=== PATIENT | female | born 1935 | race Caucasian/White ===

== ENCOUNTER 2017-09-29 17:13 | Inpatient (IN) | payer MEDICARE, MEDICAID, SELFPAY ==
--- NOTE | 2017-09-29 17:26 | DI.RAD.S_ITS ---
PROCEDURE: XR CHEST 1V INDICATIONS: fever possible sepsis TECHNIQUE: One view of the chest was acquired. COMPARISON: [facility], , CHEST FOR PICC PLACEMENT, 06/28/2014, 15:44. [facility], , CHEST 1 VIEW, 06/25/2014, 1:32. [facility], , CHEST 1 VIEW, 09/02/2013, 10:27. FINDINGS: Surgical changes and devices: The dual-chamber cardiac pacemaker device and leads appear normal. Lungs and pleura: No pleural effusions or pneumothorax. Lungs are chronically abnormal with an interstitial prominence pattern, but no definite pneumonia is found. Mild alveolar edema a superimposed, to the degree of mild or early ARDS could be present. Mediastinum: Mediastinal contours appear normal. Heart size is normal. Bones and chest wall: No suspicious bony lesions. Overlying soft tissues appear unremarkable. IMPRESSION: Chronic interstitial prominence with superimposed alveolar edema pattern there is mild. In the setting of possible sepsis early ARDS must be considered. Dictated by: Tone Dukes M.D. on 09/29/2017 at 17:40 Approved by: Tone Dukes M.D. on 09/29/2017 at 17:41
[2017-09-29 17:30] VITALS: BP 122/40; PULSE 88; RESP 22; TEMP 37.7; O2SAT 93; BMI 36.6
[2017-09-29 18:19] LABS: Basophils Percent Auto 0.2 % (0-2); Hematocrit 32.4 % (36-46); Hemoglobin 10.5 g/dL (12.0-16.0); INR 1.2 (0.9-1.3); Lymphocytes Percent Auto 2.2 % (25-40); Mean Corpuscular HGB Conc 32.4 % (30-36); Mean Corpuscular Hemoglobin 24.1 PG (26-34); Mean Corpuscular Volume 74.4 fL (80-100); Monocytes Percent Auto 3.5 % (3-14); Neutrophils Absolute Auto 8500 /uL (3000-5900); Neutrophils Percent Auto 94.1 % (50-75); Platelet Count 110 X10^3/uL (150-400); Prothrombin Time 12.7 SECONDS (10.1-12.7); Red Blood Cell Count 4.36 X10^6/uL (4.0-5.2); Red Cell Distribution Width 15.3 % (11.6-14.8)
[2017-09-29 18:22] LABS: Add Manual Diff / Slide Review SLIDE REVIEW; PTT Partial Thromboplastin Tim 28 SECONDS (26.4-36.2)
[2017-09-29 18:25] LABS: Appearance Urine UA CLOUDY; Bilirubin Urine UA NEGATIVE (NEGATIVE); Color Urine UA YELLOW; Glucose Urine UA NEGATIVE (Normal); Ketones Urine UA TRACE (NEGATIVE); Leukocyte Esterase Urine UA 1+ (NEGATIVE); Nitrite Urine UA POSITIVE (Negative); Occult Blood Urine UA 1+ (Negative); Protein Urine UA 1+ (Negative); Urobilinogen Urine UA 0.2 E.U./dL (0.2)
[2017-09-29 18:29] LABS: Alanine Aminotransferase 26 IU/L (9-52); Albumin 3.4 g/dL (3.5-5.0); Albumin Globulin Ratio 1.3 (1.0-2.8); Alkaline Phosphatase 69 U/L (38-126); Aspartate Aminotransferase 23 IU/L (14-36); BUN Creatinine Ratio 25.7 (6-22); Bilirubin Total 1.2 mg/dL (0.2-1.3); Blood Urea Nitrogen 18 mg/dL (7-17); Calcium 8.7 mg/dL (8.4-10.2); Carbon Dioxide 22 mmol/L (22-32); Chloride 106 mmol/L (98-107); Estimated Glomerular Filt Rate > 60.0 mL/min (>60); Globulin 2.7 g/dL (1.7-4.1); Glucose 165 mg/dL (80-110); HEMOLYSIS < 15 (0-50); Lipase 20 U/L (23-300); Potassium 2.9 mmol/L (3.4-5.1); Sodium 141 mmol/L (137-145); Total Protein 6.1 g/dL (6.3-8.2)
[2017-09-29 18:30] LABS: Lactate (Lactic Acid) 1.6 mmol/L (0.7-2.1)
[2017-09-29 18:33] VITALS: TEMP 38.2
[2017-09-29 18:33] LABS: Bacteria Urine Many (>30); Culture Indicated Urine Specimen Cultured; RBC Urine 1-5/HPF (0-5/HPF); Squamous Epithelial Cell Urine 0-1 /HPF; WBC Urine 10-30/HPF (0-5/HPF)
[2017-09-29 18:45] LABS: Procalcitonin 0.87 ng/mL (<0.5)
[2017-09-29 18:57] LABS: Microcytosis 1+; Ovalocytes 1+; Poikilocytosis 1+
[2017-09-29] MEDS: ASPIRIN 81 MG TAB 324 MG PO (19:20)
[2017-09-29] MEDS: SODIUM CHLORIDE 0.9% 1,000 ML 1000 ML IV (19:21)
--- NOTE | 2017-09-29 19:56 | ED.HA ---
HPI - Headache General Chief Complaint: Headache Stated Complaint: Headache w/ nausea Time Seen by Provider: 09/29/17 17:24 History of Present Illness HPI Narrative: HPI 82-year-old female presents afebrile for evaluation of poorly articulated malaise of possibly 2-3 days duration. Patient predominately endorses a sensation ear fearfulness, congestion, sore throat, but also notes cough, dysuria, urinary frequency, and left leg pain with warmth. Patient appears to have had decreased PO intake. M/S/F/SocHx notable for: chronic cellulitis, thee replacement, pacemaker, ; remainder reviewed with patient and in chart. ROS: unable to obtain accurate review systems from the patient due to mentation. Exam Gen: pleasant, unwell but not in extremis, resting mild discomfort. HEENT: NC, AT, PEERL, EOMI, neck supple, no goiter appreciated. Bilateral TMs obscured by cerumen. Bilateral external auditory canals visually normal. Resp: Clear to auscultation bilaterally, normal work of breathing, no accessory muscle usage. Card: Regular rate and rhythm with no murmurs, rubs, or gallops, extremities warm and well perfused. GI: Non-tender to palpation throughout all quadrants, no focal tenderness at McBurney's point, negative Yousif's sign, non-distended, no rebound or guarding. : No suprapubic tenderness to palpation. No CVA tenderness to percussion bilaterally. MSK: left lower extremity with mild swelling, erythema from the hip through the mid calf, mild tenderness, no fluctuance or crepitus, otherwise no visible deformities, strength and tone without visually appreciable deficit. No spinal tenderness palpation. Skin: Normal color, no petechiae, no further visible lesions. Neuro: AOx3, no facial asymmetry, vision and hearing WNL. Psych: Mood and affect appropriate. Focused Lower Extremity Venous Ultrasound Indication: Extremity swelling and extremity pain Exam type: Limited Vascular study of the left lower extremity. Views obtained: Junction of the common femoral and greater saphenous vein, junction of the deep and superficial femoral vein, the proximal 20 cm of the greater saphenous vein. Findings: Noncompressible veins consistent with DVT in mid greater saphenous vein. Unable to obtain technically adequate views of the popliteal vein. Labs / Imaging (pertinent): WBC 9.0, Hb 10.5, PLT 110, PT/INR 1.2, Na 141, K 2.9, Bilirubin 1.2, Lactate 1.6, troponin 0.830, lipase 20, Procalcitonin 0.7, BNP 917. UA: nitrite positive, 1+ leukocyte esterase, one plus occult blood, 10-30 WBCs, 0-1 squamous epithelial cells, many bacteria. CXR: chronic interstitial prominence with a superimposed alveolar edema pattern there is mild. In the setting of possible sepsis early ARDS this may be considered. EKG: ventricularly paced 87 bpm. MDM Previous chart, nursing note, labs, imaging, and vitals reviewed. A: 82-year-old female presents afebrile for evaluation of poorly articulated malaise of possibly 2-3 days duration. Evaluation: Patient meets [facility] sepsis screening guidelines (temperature and respiratory rate), source as below. Infectious Source: * Pulmonary: no clear evidence of pulmonary infection based on imaging and history, however patient has edema and possibility of early ARDS. * Urine: UA consistent with infection versus colonization. * Skin: left lower extremity with cellulitis. Chronicity uncertain. * HEAVY EQUIPMENT OPERATOR APPRENTICE: Doubt given the lack of meningismus, petechia, and the overall clinical presentation. * Abdomen: Doubt given the non-tender abdomen and an alternate source. * Spine: Given the absence of back pain and an alternate source further investigation for possible epidural abscess, spinal osteomyelitis, or discitis are not currently warranted. * Lines: Patient without indwelling lines/ports. Other: concern for DVT in left mid saphenous vein. Formal ultrasound pending at time of admission. Patient given one dose Lovenox SQ. Patient also noted to have troponin elevation, given lack of chest pain or other corroborating symptoms strongly suspect this is demand mediated. Aspirin given. Resuscitation: * Blood cultures, 1 L normal saline fluid bolus given, as patient is without hypotension, lactic elevation, and has findings of fluid overload further volume resuscitation does not appear to be in the patient's best interest. Vancomycin and Zosyn ordered with the initial evaluation. Disposition: admitted for further care. Impression: sepsis, UTI, cellulitis, suspected LLE DVT. (please reference below for remainder of encounter information) Critical Care Time Organ system(s): Cardiopulmonary, vascular, HEAVY EQUIPMENT OPERATOR APPRENTICE, Renal Intervention: Assessment of the patient, interpretation of studies, communication related to patient care. Time: 30 minutes were spent directly related to patient care exclusive of separately billed procedures The patient is also without evidence of pancreatitis (lipase within clinically acceptable limits), adrenal insufficiency is tentatively considered unlikely as there is no evidence of chronic steroid use, no known adrenal insufficiency and the patient has been without refractory hypotension. Thyroid disease was considered, given the absence of known thyroid disease or goiter on exam, and a tentatively explaining etiology for the patient?s presentation further investigation is not currently indicated. Ingestion/OD are felt to be unlikely given history, absence of significant mydriasis, and lack of appreciated clonus or hyperreflexia, as well as an alternate explaining etiology.The possibility of alcohol, benzodiazepine, opiate withdrawal were considered and while history is limited at this point these do not appear to be contributing. Related Data Home Medications Medication Instructions Recorded Confirmed Calcium 1 dose PO DAILY 09/29/17 09/29/17 Vitamin B-12 1 tab PO DAILY 09/29/17 09/29/17 Vitamin B-6 1 tab PO DAILY 09/29/17 09/29/17 atorvastatin 20 mg PO BEDTIME 09/29/17 09/29/17 bupropion HCl 300 mg PO QAM 09/29/17 09/29/17 furosemide 40 mg PO BID 09/29/17 09/29/17 potassium chloride 20 meq PO DAILY 09/29/17 09/29/17 Allergies Allergy/AdvReac Type Severity Reaction Status Date / Time cefazolin Allergy Intermediate ITCHING Verified 09/30/17 08:27 atorvastatin [From Lipitor] Allergy Unknown ITCHING Verified 09/30/17 08:27 hydrocodone AdvReac Mild Vomiting Verified 09/30/17 08:27 [facility] Family History: Reviewed 09/30/17 by Drew Nowak MD Social History household members: none Smoking Status: Never smoker Exam Initial Vital Signs Initial Vital Signs: Vital Signs Temperature 99.8 F H 07/02/18 17:30 Pulse Rate 88 09/29/17 17:30 Respiratory Rate 22 09/29/17 17:30 Blood Pressure 122/40 H 09/29/17 17:30 Pulse Oximetry 93 09/29/17 17:30 Course Orders Ordered: Discontinued Medications Acetaminophen (Tylenol) 650 mg PO Q4HR [facility] Last Admin: 09/30/17 05:00 Dose: 650 mg Admin: 09/30/17 00:14 Dose: 650 mg Aspirin (Aspirin Chew) 324 mg PO NOW ONE Stop: 09/29/17 19:16 Last Admin: 09/29/17 19:20 Dose: 324 mg Aspirin (Aspirin Ec) 325 mg PO DAILY [facility] Atorvastatin Calcium (Lipitor) 20 mg PO BEDTIME [facility] Bupropion HCl (Wellbutrin Xl) 300 mg PO DAILY [facility] Enoxaparin Sodium (Lovenox) 125 mg 1 mg/kg (125 mg) SUBCUT NOW ONE Stop: 09/29/17 19:55 Last Admin: 09/29/17 20:34 Dose: 125 mg Enoxaparin Sodium (Lovenox) 125 mg 1 mg/kg (125 mg) SUBCUT NOW ONE Stop: 09/30/17 08:21 Sodium Chloride (Normal Saline 0.9%) 1,000 mls @ 1,000 mls/hr IV BOLUS ONE Stop: 09/29/17 20:14 Last Infusion: 09/29/17 21:31 Dose: 1,000 mls/hr Admin: 09/29/17 19:21 Dose: 1,000 mls/hr Vancomycin HCl 1,750 mg/ (Sodium Chloride) 500 mls @ 333.333 mls/hr IV NOW ONE Stop: 09/29/17 19:16 Last Admin: 09/29/17 21:45 Dose: 333.333 mls/hr Piperacillin/Tazobactam/Dextrose (Zosyn) 4.5 gm in 100 mls @ 200 mls/hr IV NOW ONE Stop: 09/29/17 19:44 Last Infusion: 09/29/17 21:30 Dose: 200 mls/hr Admin: 09/29/17 20:17 Dose: 200 mls/hr Sodium Chloride (Normal Saline 0.9%) 1,000 mls @ 125 mls/hr IV CONT MARK Last Infusion: 09/30/17 02:45 Dose: 125 mls/hr Infusion: 09/30/17 02:45 Dose: 125 mls/hr Admin: 09/30/17 02:44 Dose: 125 mls/hr Infusion: 09/30/17 02:44 Dose: 125 mls/hr Admin: 09/29/17 21:45 Dose: 125 mls/hr Piperacillin/Tazobactam/Dextrose (Zosyn) 4.5 gm in 100 mls @ 200 mls/hr IV Q6H MARK Last Admin: 09/30/17 04:01 Dose: 200 mls/hr Admin: 09/29/17 23:10 Dose: Vancomycin HCl/Dextrose (Vancomycin) 1,000 mg in 200 mls @ 200 mls/hr IV Q12H MARK Clindamycin Phosphate 1,200 mg (/ Dextrose) 58 mls @ 116 mls/hr IV NOW ONE Stop: 09/30/17 08:52 Last Admin: 09/30/17 09:22 Dose: 116 mls/hr Sodium Chloride (Normal Saline 0.9%) 1,000 mls @ 150 mls/hr IV CONT MARK Last Admin: 09/30/17 09:17 Dose: 150 mls/hr Metoprolol Tartrate (Lopressor) 5 mg IV Q6H MARK Last Admin: 09/30/17 09:17 Dose: 5 mg Ondansetron HCl (Zofran) 4 mg IV Q4H PRN PRN Reason: Nausea And Vomiting Potassium Chloride (Klor-Con M20) 40 meq PO NOW ONE Stop: 09/29/17 21:21 Last Admin: 09/29/17 23:49 Dose: 40 meq Potassium Chloride (Klor-Con M20) 40 meq PO NOW ONE Stop: 09/30/17 07:47 Vancomycin HCl (Vancomycin Per Pharmacy) 1 request MISC NOW ONE Stop: 09/30/17 09:21 Vancomycin HCl (Vancomycin Trough) 1 request MISC NOW ONE Stop: 10/01/17 09:31 Vital Signs - 8 hr 09/29/17 17:30 09/29/17 18:33 Temperature 99.8 F H 100.8 F H Pulse Rate 88 Respiratory Rate 22 Blood Pressure 122/40 H Pulse Oximetry 93 MDM - Headache Lab Data Result diagrams: 09/30/17 05:18 07/03/18 05:18 Lab Results 09/29/17 09/29/17 09/29/17 Range/Units 18:03 18:03 18:03 WBC 9.0 (4.5-11.0) X10^3/uL RBC 4.36 (4.0-5.2) X10^6/uL Hgb 10.5 L (12.0-16.0) g/dL Hct 32.4 L (36-46) % MCV 74.4 L (80-100) fL MCH 24.1 L (26-34) PG MCHC 32.4 (30-36) % RDW 15.3 H (11.6-14.8) % Plt Count 110 L (150-400) X10^3/uL Neut % (Auto) 94.1 H (50-75) % Lymph % (Auto) 2.2 L (25-40) % [place] % (Auto) 3.5 (3-14) % Eos % (Auto) 0.0 L (2-4) % Baso % (Auto) 0.2 (0-2) % Neut # (Auto) 8500 H (5910-4972) /uL RBC Morphology Not Reportable Poikilocytosis 1+ H Microcytosis 1+ H Ovalocytes 1+ H PT 12.7 (10.1-12.7) SECONDS INR 1.2 (0.9-1.3) APTT 28 (26.4-36.2) SECONDS Sodium 141 (137-145) mmol/L Potassium 2.9 L (3.4-5.1) mmol/L Chloride 106 (98-107) mmol/L Carbon Dioxide 22 (22-32) mmol/L BUN 18 H (7-17) mg/dL Creatinine 0.70 (0.52-1.04) mg/dL Estimated GFR > 60.0 (>60) mL/min BUN/Creatinine Ratio 25.7 H (6-22) Glucose 165 H (80-110) mg/dL Lactate (0.7-2.1) mmol/L Calcium 8.7 (8.4-10.2) mg/dL Total Bilirubin 1.2 (0.2-1.3) mg/dL AST 23 (14-36) IU/L ALT 26 (9-52) IU/L Alkaline Phosphatase 69 (38-126) U/L Troponin I 0.830 H* (0.01-0.034) ng/mL B-Natriuretic Peptide 917.0 H (<100) Total Protein 6.1 L (6.3-8.2) g/dL Albumin 3.4 L (3.5-5.0) g/dL Globulin 2.7 (1.7-4.1) g/dL Albumin/Globulin Ratio 1.3 (1.0-2.8) Lipase 20 L (23-300) U/L Procalcitonin (<0.5) ng/mL Urine Color Urine Appearance Urine pH (4.5-8.0) Ur Specific [place] (1.000-1.035) Urine Protein (Negative) Urine Glucose (UA) (Normal) g/dL Urine Ketones (NEGATIVE) Urine Occult Blood (Negative) Urine Nitrate (Negative) Urine Bilirubin (NEGATIVE) Urine Urobilinogen (0.2) E.U./dL Ur Leukocyte Esterase (NEGATIVE) Urine RBC (0-5/HPF) Urine WBC (0-5/HPF) Ur Squamous Epith Cells Urine Bacteria (None) Ur Culture Indicated? Micro UA Comment A. baumannii (PCR) (Not Detect) Noa albicans (PCR) (Not Detect) C. glabrata (PCR) (Not Detect) C. krusei (PCR) (Not Detect) C. parapsilosis (PCR) (Not Detect) C. tropicalis (PCR) (Not Detect) Enterobacteriac sp PCR (Not Detect) E. cloacae complex PCR (Not Detect) Enterococcus sp PCR (Not Detect) E. coli (PCR) (Not Detect) H. influenzae (PCR) (Not Detect) Klebsiella oxytoca PCR (Not Detect) Klebsiella pneumoniae (Not Detect) List. monocytogenes PCR (Not Detect) N. meningitidis (PCR) (Not Detect) Proteus species (PCR) (Not Detect) Serratia marcescens PCR (Not Detect) Staphylococcus sp PCR (Not Detect) Staph aureus (PCR) (Not Detect) mecA-Methicil Res Gene Streptococcus sp PCR (Not Detect) Group A Strep (PCR) (Not Detect) Strep agalactiae (PCR) (Not Detect) Strep pneumoniae (PCR) (Not Detect) P. aeruginosa (PCR) (Not Detect) Gabby/B-Vanco Res Genes KPC-Carbap Res Gene PCR 09/29/17 09/29/17 09/29/17 Range/Units 18:03 18:03 18:18 WBC (4.5-11.0) X10^3/uL RBC (4.0-5.2) X10^6/uL Hgb (12.0-16.0) g/dL Hct (36-46) % MCV (80-100) fL MCH (26-34) PG MCHC (30-36) % RDW (11.6-14.8) % Plt Count (150-400) X10^3/uL Neut % (Auto) (50-75) % Lymph % (Auto) (25-40) % [place] % (Auto) (3-14) % Eos % (Auto) (2-4) % Baso % (Auto) (0-2) % Neut # (Auto) (6434-3038) /uL RBC Morphology Poikilocytosis Microcytosis Ovalocytes PT (10.1-12.7) SECONDS INR (0.9-1.3) APTT (26.4-36.2) SECONDS Sodium (137-145) mmol/L Potassium (3.4-5.1) mmol/L Chloride (98-107) mmol/L Carbon Dioxide (22-32) mmol/L BUN (7-17) mg/dL Creatinine (0.52-1.04) mg/dL Estimated GFR (>60) mL/min BUN/Creatinine Ratio (6-22) Glucose (80-110) mg/dL Lactate 1.6 (0.7-2.1) mmol/L Calcium (8.4-10.2) mg/dL Total Bilirubin (0.2-1.3) mg/dL AST (14-36) IU/L ALT (9-52) IU/L Alkaline Phosphatase (38-126) U/L Troponin I (0.01-0.034) ng/mL B-Natriuretic Peptide (<100) Total Protein (6.3-8.2) g/dL Albumin (3.5-5.0) g/dL Globulin (1.7-4.1) g/dL Albumin/Globulin Ratio (1.0-2.8) Lipase (23-300) U/L Procalcitonin 0.87 H (<0.5) ng/mL Urine Color Yellow Urine Appearance Cloudy Urine pH 6.0 (4.5-8.0) Ur Specific [place] 1.020 (1.000-1.035) Urine Protein 1+ H (Negative) Urine Glucose (UA) Negative (Normal) g/dL Urine Ketones Trace H (NEGATIVE) Urine Occult Blood 1+ H (Negative) Urine Nitrate Positive H (Negative) Urine Bilirubin Negative (NEGATIVE) Urine Urobilinogen 0.2 (0.2) E.U./dL Ur Leukocyte Esterase 1+ H (NEGATIVE) Urine RBC 1-5/hpf (0-5/HPF) Urine WBC 10-30/hpf H (0-5/HPF) Ur Squamous Epith Cells 0-1 /hpf Urine Bacteria Many (>30) H (None) Ur Culture Indicated? Specimen cultured Micro UA Comment Not Reportable A. baumannii (PCR) (Not Detect) Noa albicans (PCR) (Not Detect) C. glabrata (PCR) (Not Detect) C. krusei (PCR) (Not Detect) C. parapsilosis (PCR) (Not Detect) C. tropicalis (PCR) (Not Detect) Enterobacteriac sp PCR (Not Detect) E. cloacae complex PCR (Not Detect) Enterococcus sp PCR (Not Detect) E. coli (PCR) (Not Detect) H. influenzae (PCR) (Not Detect) Klebsiella oxytoca PCR (Not Detect) Klebsiella pneumoniae (Not Detect) List. monocytogenes PCR (Not Detect) N. meningitidis (PCR) (Not Detect) Proteus species (PCR) (Not Detect) Serratia marcescens PCR (Not Detect) Staphylococcus sp PCR (Not Detect) Staph aureus (PCR) (Not Detect) mecA-Methicil Res Gene Streptococcus sp PCR (Not Detect) Group A Strep (PCR) (Not Detect) Strep agalactiae (PCR) (Not Detect) Strep pneumoniae (PCR) (Not Detect) P. aeruginosa (PCR) (Not Detect) Gabby/B-Vanco Res Genes KPC-Carbap Res Gene PCR 09/30/17 09/30/17 09/30/17 Range/Units 05:18 05:18 18:03 WBC 3.5 L D (4.5-11.0) X10^3/uL RBC 4.11 (4.0-5.2) X10^6/uL Hgb 9.9 L (12.0-16.0) g/dL Hct 31.0 L (36-46) % MCV 75.5 L (80-100) fL MCH 24.1 L (26-34) PG MCHC 31.9 (30-36) % RDW 15.3 H (11.6-14.8) % Plt Count 84 L (150-400) X10^3/uL Neut % (Auto) 92.5 H (50-75) % Lymph % (Auto) 3.8 L (25-40) % [place] % (Auto) 3.6 (3-14) % Eos % (Auto) 0.0 L (2-4) % Baso % (Auto) 0.1 (0-2) % Neut # (Auto) 3200 (1488-0643) /uL RBC Morphology Poikilocytosis Microcytosis Ovalocytes PT (10.1-12.7) SECONDS INR (0.9-1.3) APTT (26.4-36.2) SECONDS Sodium 139 (137-145) mmol/L Potassium 3.1 L (3.4-5.1) mmol/L Chloride 107 (98-107) mmol/L Carbon Dioxide 24 (22-32) mmol/L BUN 21 H (7-17) mg/dL Creatinine 0.90 (0.52-1.04) mg/dL Estimated GFR > 60.0 (>60) mL/min BUN/Creatinine Ratio 23.3 H (6-22) Glucose 118 H (80-110) mg/dL Lactate (0.7-2.1) mmol/L Calcium 7.9 L (8.4-10.2) mg/dL Total Bilirubin (0.2-1.3) mg/dL AST (14-36) IU/L ALT (9-52) IU/L Alkaline Phosphatase (38-126) U/L Troponin I 0.465 H* (0.01-0.034) ng/mL B-Natriuretic Peptide (<100) Total Protein (6.3-8.2) g/dL Albumin (3.5-5.0) g/dL Globulin (1.7-4.1) g/dL Albumin/Globulin Ratio (1.0-2.8) Lipase (23-300) U/L Procalcitonin (<0.5) ng/mL Urine Color Urine Appearance Urine pH (4.5-8.0) Ur Specific [place] (1.000-1.035) Urine Protein (Negative) Urine Glucose (UA) (Normal) g/dL Urine Ketones (NEGATIVE) Urine Occult Blood (Negative) Urine Nitrate (Negative) Urine Bilirubin (NEGATIVE) Urine Urobilinogen (0.2) E.U./dL Ur Leukocyte Esterase (NEGATIVE) Urine RBC (0-5/HPF) Urine WBC (0-5/HPF) Ur Squamous Epith Cells Urine Bacteria (None) Ur Culture Indicated? Micro UA Comment A. baumannii (PCR) Not detected (Not Detect) Noa albicans (PCR) Not detected (Not Detect) C. glabrata (PCR) Not detected (Not Detect) C. krusei (PCR) Detected H (Not Detect) C. parapsilosis (PCR) Not detected (Not Detect) C. tropicalis (PCR) Not detected (Not Detect) Enterobacteriac sp PCR Not detected (Not Detect) E. cloacae complex PCR Not detected (Not Detect) Enterococcus sp PCR Not detected (Not Detect) E. coli (PCR) Not detected (Not Detect) H. influenzae (PCR) Not detected (Not Detect) Klebsiella oxytoca PCR Not detected (Not Detect) Klebsiella pneumoniae Not detected (Not Detect) List. monocytogenes PCR Not detected (Not Detect) N. meningitidis (PCR) Not detected (Not Detect) Proteus species (PCR) Not detected (Not Detect) Serratia marcescens PCR Not detected (Not Detect) Staphylococcus sp PCR Not detected (Not Detect) Staph aureus (PCR) Not detected (Not Detect) mecA-Methicil Res Gene Not Reportable Streptococcus sp PCR Detected H (Not Detect) Group A Strep (PCR) Not detected (Not Detect) Strep agalactiae (PCR) Not detected (Not Detect) Strep pneumoniae (PCR) Not detected (Not Detect) P. aeruginosa (PCR) Not detected (Not Detect) Gabby/B-Vanco Res Genes Not Reportable KPC-Carbap Res Gene PCR Not Reportable Discharge Plan Departure Patient Disposition: Admitted As Inpatient Clinical Impression: Sepsis Discharge Date/Time: 09/29/17 21:37 Interventions: ED Discharge Assessment Last Done: 09/29/17 21:37 Admit Date/Time: 09/29/17 20:13 Admit Provider: Drew Nowak V
[2017-09-29] MEDS: PIPERACILLIN-TAZO 4.5 GM/100 ML FROZ.PIGGY IV (20:17)
[2017-09-29] MEDS: ENOXAPARIN 40 MG/0.4 ML SYRINGE 125 MG SUBCUT (20:34)
[2017-09-29 20:40] VITALS: BP 118/86; PULSE 91; RESP 25; O2SAT 98
[2017-09-29 21:30] VITALS: BP 137/59; PULSE 92; RESP 18; TEMP 37.4; O2SAT 99
[2017-09-29] MEDS: SODIUM CHLORIDE 0.9% 1,000 ML 125 ML IV (21:45)
[2017-09-29] MEDS: VANCOMYCIN 1,750 MG in SODIUM CHLORIDE 0.9% 500 ML 333.333 ML IV (21:45)
[2017-09-29 21:47] VITALS: O2SAT 96; BMI 36.6
[2017-09-29] MEDS: POTASSIUM CHLORIDE 20 MEQ TAB 40 MEQ PO (23:49)
[2017-09-30] VITALS (8 sets, daily range): BP systolic 123–146; BP diastolic 52–82; PULSE 52–99; RESP 16–22; TEMP 37.4–38.3; O2SAT 95–96
--- NOTE | 2017-09-30 | DI.US.S_ITS ---
PROCEDURE: US PERIPH VENOUS LOW EXTREM LT INDICATIONS: LEFT LEG EDEMA TECHNIQUE: Real-time imaging, as well as color and pulse Doppler interrogation, were performed of the lower extremity deep veins from the inguinal ligament to the popliteal fossa. COMPARISON: None. FINDINGS: The deep veins are normally compressible, and free of intraluminal thrombus. Color and pulse Doppler demonstrate normal phasic intraluminal flow. There is normal augmentation response to distal compression maneuver. However, please note that the lower aspect of the superficial femoral vein was not definitely seen related to the patient's body habitus. IMPRESSION: No evidence of left lower extremity deep vein thrombosis. Dictated by: Jonn Geller M.D. on 09/30/2017 at 8:36 Approved by: Jonn Geller M.D. on 09/30/2017 at 8:37
[2017-09-30] MEDS: ACETAMINOPHEN 325 MG TABLET 650 MG PO ×2 (00:14→05:00)
[2017-09-30] MEDS: SODIUM CHLORIDE 0.9% 1,000 ML 125 ML IV (02:44)
[2017-09-30] MEDS: PIPERACILLIN-TAZO 4.5 GM/100 ML FROZ.PIGGY IV (04:01)
[2017-09-30 05:55] LABS: Add Manual Diff / Slide Review NO; Basophils Percent Auto 0.1 % (0-2); Hemoglobin 9.9 g/dL (12.0-16.0); Lymphocytes Percent Auto 3.8 % (25-40); Mean Corpuscular HGB Conc 31.9 % (30-36); Mean Corpuscular Hemoglobin 24.1 PG (26-34); Mean Corpuscular Volume 75.5 fL (80-100); Monocytes Percent Auto 3.6 % (3-14); Neutrophils Absolute Auto 3200 /uL (3000-5900); Neutrophils Percent Auto 92.5 % (50-75); Platelet Count 84 X10^3/uL (150-400); Red Blood Cell Count 4.11 X10^6/uL (4.0-5.2); Red Cell Distribution Width 15.3 % (11.6-14.8); White Blood Cell Count 3.5 X10^3/uL (4.5-11.0)
[2017-09-30 06:09] LABS: BUN Creatinine Ratio 23.3 (6-22); Blood Urea Nitrogen 21 mg/dL (7-17); Calcium 7.9 mg/dL (8.4-10.2); Carbon Dioxide 24 mmol/L (22-32); Chloride 107 mmol/L (98-107); Estimated Glomerular Filt Rate > 60.0 mL/min (>60); Glucose 118 mg/dL (80-110); HEMOLYSIS < 15 (0-50); Potassium 3.1 mmol/L (3.4-5.1); Sodium 139 mmol/L (137-145)
[2017-09-30 06:22] LABS: Troponin I 0.465 ng/mL (0.01-0.034)
[2017-09-30 06:26] LABS: Acinetobacter baumannii Not Detected (Not Detect); E. coli Not Detected (Not Detect); Enterobacter cloacae complex Not Detected (Not Detect); Enterobacteriaceae species Not Detected (Not Detect); Enterococcus species Not Detected (Not Detect); Listeria monocytogenes Not Detected (Not Detect); Staphylococcus species Not Detected (Not Detect); Streptococcus agalactiae (Gr B Not Detected (Not Detect); Streptococcus pneumonia Not Detected (Not Detect); Streptococcus pyogenes (Gr A) Not Detected (Not Detect)
[2017-09-30 06:27] LABS: Candida albicans Not Detected (Not Detect); Candida glabrata Not Detected (Not Detect); Candida parapsilosis Not Detected (Not Detect); Candida tropicalis Not Detected (Not Detect); Haemophilus influenzae Not Detected (Not Detect); Neisseria meningitidis Not Detected (Not Detect); Proteus species Not Detected (Not Detect); Pseudomonas aeruginosa Not Detected (Not Detect); Serratia marcescens Not Detected (Not Detect)
[2017-09-30 06:29] LABS: Candida krusei Detected (Not Detect); Streptococcus species Detected (Not Detect)
--- NOTE | 2017-09-30 06:41 | PC.NURSE ---
Lab. called to report BC Gram + Cocci, Strep. & Noa Krusei. Placed pt. on contact isolation. Pt. receiving Vanco & Zosyn, will report ot day RN.
--- NOTE | 2017-09-30 08:25 | P.HP_ITS ---
History of Present Illness Date Patient Seen: 09/30/17 Time Patient Seen: 08:00 Chief complaint: Headache w/ nausea Narrative: 82-year-old woman under the primary care of the residency Clinic at [facility] presented last night with 2-3 days of headaches, shoulder stiffness, ear fullness, sore throat and nausea. She also has had left leg pain and warmth, dysuria, urinary frequency and cough and generalized malaise. She was found to have a tender, swollen left leg consistent with cellulitis, with a bedside ER ultrasound reportedly showing a noncompressible mid greater saphenous vein consistent with a left lower extremity greater saphenous vein deep venous thrombosis. She was started on vancomycin and cefepime after blood cultures were obtained. This morning blood cultures returned growing Noa krusei and Gram-positive cocci pending identification. The patient reports ongoing pain in the left leg and malaise. She is pancytopenic and febrile to 100.8? F, and denies any history of immunocompromise , cancer or previous systemic infections. PMH Depression History of cellulitis Osteoarthritis status post knee replacement Status post pacemaker placement Patient History Family & Social History Family History: Reviewed 09/30/17 by Drew Nowak MD Social History: household members none Prior Living Arrangements House Safety & Behavioral: Feels Safe in Current Yes Environment Been Physically Hurt or No Threatened By a Person Suicidal Ideation Description None Tobacco & Substance use: Smoking Status Never smoker alcohol intake frequency holiday/special occasion Substance Use Type does not use Meds Home Medications Medication Instructions Recorded Confirmed Type Calcium 1 dose PO DAILY 09/29/17 09/29/17 History Vitamin B-12 1 tab PO DAILY 09/29/17 09/29/17 History Vitamin B-6 1 tab PO DAILY 09/29/17 09/29/17 History atorvastatin 20 mg PO BEDTIME 09/29/17 09/29/17 History bupropion HCl 300 mg PO QAM 09/29/17 09/29/17 History furosemide 40 mg PO BID 09/29/17 09/29/17 History potassium chloride 20 meq PO DAILY 09/29/17 09/29/17 History Allergies Allergy/AdvReac Type Severity Reaction Status Date / Time cefazolin Allergy Intermediate ITCHING Verified 09/30/17 08:27 atorvastatin [From Lipitor] Allergy Unknown ITCHING Verified 09/30/17 08:27 hydrocodone AdvReac Mild Vomiting Verified 09/30/17 08:27 Review of Systems Review of Systems All systems reviewed & are unremarkable except as noted in HPI and below Exam Vital Signs (past 8 hours): - 09/30/17 00:20 09/30/17 04:26 Temperature 99.9 F H Pulse Rate 92 H Respiratory Rate 22 Blood Pressure 129/53 H Pulse Oximetry 95 95 Oxygen Delivery Method Room Air Narrative Exam Narrative: General: Pleasant, obese female, appropriate, appears mildly anxious HEENT: Pupils equal round reactive, extraocular movements intact, mucous membranes pink and moist Neck: Supple Lungs: Decreased breath sounds bilateral bases with crackles Cardiac: Regular rate and rhythm without appreciable murmur Abdomen: Soft, obese, nontender Genitourinary: Bilateral labia with deeply purpuric tender ecchymotic coloration on external exam (examined with RNs Miranda and Margy), extending to the perineal region, with sacral erythema, tenderness and superficial skin sloughing Extremities: Left leg swollen, tender from the ankle to proximal thigh Dermatologic: As described, without right leg tenderness or swelling, or other skin lesions evident Neurologic: Alert, oriented, full upper and lower motor strength, normal distal sensation left leg, no focal deficits evident Objective Imaging Chest x-ray: Radiologist's impression: Chronic interstitial prominence with superimposed alveolar edema pattern there is mild. In the setting of possible sepsis early ARDS must be considered. ECG: Electronic ventricular pacer at 87 beats per minute Labs Result Diagrams: 09/30/17 05:18 09/30/17 05:18 Labs: Laboratory Results - last 24 hr 09/29/1718 09/29/17 18:03 18:03 18:03 WBC 9.0 RBC 4.36 Hgb 10.5 L Hct 32.4 L MCV 74.4 L MCH 24.1 L MCHC 32.4 RDW 15.3 H Plt Count 110 L Neut % (Auto) 94.1 H Lymph % (Auto) 2.2 L Bel[place]ami % (Auto) 3.5 Eos % (Auto) 0.0 L Baso % (Auto) 0.2 Neut # (Auto) 8500 H RBC Morphology Not Reportable Poikilocytosis 1+ H Microcytosis 1+ H Ovalocytes 1+ H PT 12.7 INR 1.2 APTT 28 Sodium 141 Potassium 2.9 L Chloride 106 Carbon Dioxide 22 BUN 18 H Creatinine 0.70 Estimated GFR > 60.0 BUN/Creatinine Ratio 25.7 H Glucose 165 H Lactate Calcium 8.7 Total Bilirubin 1.2 AST 23 ALT 26 Alkaline Phosphatase 69 Troponin I 0.830 H* B-Natriuretic Peptide 917.0 H Total Protein 6.1 L Albumin 3.4 L Globulin 2.7 Albumin/Globulin Ratio 1.3 Lipase 20 L Procalcitonin Urine Color Urine Appearance Urine pH Ur Specific [place] Urine Protein Urine Glucose (UA) Urine Ketones Urine Occult Blood Urine Nitrate Urine Bilirubin Urine Urobilinogen Ur Leukocyte Esterase Urine RBC Urine WBC Ur Squamous Epith Cells Urine Bacteria Ur Culture Indicated? Micro UA Comment A. baumannii (PCR) Noa albicans (PCR) C. glabrata (PCR) C. krusei (PCR) C. parapsilosis (PCR) C. tropicalis (PCR) Enterobacteriac sp PCR E. cloacae complex PCR Enterococcus sp PCR E. coli (PCR) H. influenzae (PCR) Klebsiella oxytoca PCR Klebsiella pneumoniae List. monocytogenes PCR N. meningitidis (PCR) Proteus species (PCR) Serratia marcescens PCR Staphylococcus sp PCR Staph aureus (PCR) mecA-Methicil Res Gene Streptococcus sp PCR Group A Strep (PCR) Strep agalactiae (PCR) Strep pneumoniae (PCR) P. aeruginosa (PCR) Gabby/B-Vanco Res Genes KPC-Carbap Res Gene PCR 09/29/17 09/29/17 09/29/17 18:03 18:03 18:18 WBC RBC Hgb Hct MCV MCH MCHC RDW Plt Count Neut % (Auto) Lymph % (Auto) [place] % (Auto) Eos % (Auto) Baso % (Auto) Neut # (Auto) RBC Morphology Poikilocytosis Microcytosis Ovalocytes PT INR APTT Sodium Potassium Chloride Carbon Dioxide BUN Creatinine Estimated GFR BUN/Creatinine Ratio Glucose Lactate 1.6 Calcium Total Bilirubin AST ALT Alkaline Phosphatase Troponin I B-Natriuretic Peptide Total Protein Albumin Globulin Albumin/Globulin Ratio Lipase Procalcitonin 0.87 H Urine Color Yellow Urine Appearance Cloudy Urine pH 6.0 Ur Specific [place] 1.020 Urine Protein 1+ H Urine Glucose (UA) Negative Urine Ketones Trace H Urine Occult Blood 1+ H Urine Nitrate Positive H Urine Bilirubin Negative Urine Urobilinogen 0.2 Ur Leukocyte Esterase 1+ H Urine RBC 1-5/hpf Urine WBC 10-30/hpf H Ur Squamous Epith Cells 0-1 /hpf Urine Bacteria Many (>30) H Ur Culture Indicated? Specimen cultured Micro UA Comment Not Reportable A. baumannii (PCR) Noa albicans (PCR) C. glabrata (PCR) C. krusei (PCR) C. parapsilosis (PCR) C. tropicalis (PCR) Enterobacteriac sp PCR E. cloacae complex PCR Enterococcus sp PCR E. coli (PCR) H. influenzae (PCR) Klebsiella oxytoca PCR Klebsiella pneumoniae List. monocytogenes PCR N. meningitidis (PCR) Proteus species (PCR) Serratia marcescens PCR Staphylococcus sp PCR Staph aureus (PCR) mecA-Methicil Res Gene Streptococcus sp PCR Group A Strep (PCR) Strep agalactiae (PCR) Strep pneumoniae (PCR) P. aeruginosa (PCR) Gabby/B-Vanco Res Genes KPC-Carbap Res Gene PCR 09/30/17 09/30/17 09/30/17 05:18 05:18 18:03 WBC 3.5 L D RBC 4.11 Hgb 9.9 L Hct 31.0 L MCV 75.5 L MCH 24.1 L MCHC 31.9 RDW 15.3 H Plt Count 84 L Neut % (Auto) 92.5 H Lymph % (Auto) 3.8 L [place] % (Auto) 3.6 Eos % (Auto) 0.0 L Baso % (Auto) 0.1 Neut # (Auto) 3200 RBC Morphology Poikilocytosis Microcytosis Ovalocytes PT INR APTT Sodium 139 Potassium 3.1 L Chloride 107 Carbon Dioxide 24 BUN 21 H Creatinine 0.90 Estimated GFR > 60.0 BUN/Creatinine Ratio 23.3 H Glucose 118 H Lactate Calcium 7.9 L Total Bilirubin AST ALT Alkaline Phosphatase Troponin I 0.465 H* B-Natriuretic Peptide Total Protein Albumin Globulin Albumin/Globulin Ratio Lipase Procalcitonin Urine Color Urine Appearance Urine pH Ur Specific [place] Urine Protein Urine Glucose (UA) Urine Ketones Urine Occult Blood Urine Nitrate Urine Bilirubin Urine Urobilinogen Ur Leukocyte Esterase Urine RBC Urine WBC Ur Squamous Epith Cells Urine Bacteria Ur Culture Indicated? Micro UA Comment A. baumannii (PCR) Not detected Noa albicans (PCR) Not detected C. glabrata (PCR) Not detected C. krusei (PCR) Detected H C. parapsilosis (PCR) Not detected C. tropicalis (PCR) Not detected Enterobacteriac sp PCR Not detected E. cloacae complex PCR Not detected Enterococcus sp PCR Not detected E. coli (PCR) Not detected H. influenzae (PCR) Not detected Klebsiella oxytoca PCR Not detected Klebsiella pneumoniae Not detected List. monocytogenes PCR Not detected N. meningitidis (PCR) Not detected Proteus species (PCR) Not detected Serratia marcescens PCR Not detected Staphylococcus sp PCR Not detected Staph aureus (PCR) Not detected mecA-Methicil Res Gene Not Reportable Streptococcus sp PCR Detected H Group A Strep (PCR) Not detected Strep agalactiae (PCR) Not detected Strep pneumoniae (PCR) Not detected P. aeruginosa (PCR) Not detected Gabby/B-Vanco Res Genes Not Reportable KPC-Carbap Res Gene PCR Not Reportable Assessment & Plan Plan: Assessment/Plan Narrative: 1. Left lower extremity cellulitis, with deeply purpuric labia and perineal region highly concerning for necrotizing fasciitis. Combined with presenting pancytopenia, Gram-positive bacteremia and Noa krusei fungemia, recommend urgent transfer to a tertiary level facility for surgical and Infectious Disease consultation and further management. Continue vancomycin and Zosyn started in the emergency department. We will look into the availability of IV voriconazole for empiric broad-spectrum treatment prior to transfer. 2. Pancytopenia, likely due to acute infectious presentation. 3. Left lower extremity deep venous thrombosis, probable. Obtain formal ultrasound to evaluate further. She received a dose of enoxaparin 125 mg at 7: 55 p.m. on 09/30/2017. 4. Acute myocardial infarction, likely due to type 2 myocardial infarction due to demand ischemia. No prior diagnosis of coronary disease per patient. Clinically asymptomatic. She received aspirin in the emergency department and is order to receive metoprolol tartrate 5 mg IV. 5. Hypokalemia. Oral potassium chloride 40 mEq administered with small sip at 7:47 a.m. 6. Code status: Full code. 7. Disposition: The patient has graciously been received by Dr. Aguirre of [facility]. Arrangements are currently pending for urgent transport for medical stabilization and further management and care. She is hemodynamically stable at the time of this dictation. 60 minutes of critical care time spent. Quality VTE Deep Vein Thrombosis/Pulmonary Embolism Present on Admission: Yes
--- NOTE | 2017-09-30 09:11 | CM.DANOTE ---
Discharge Planning/Care Management DCP: assessment: case received, EMR reviewed, spoke with VIANNEY Amin and met with pt. Introduced self and role. Pt is an 82 yeaer old female who admitted last night to care of hospitalist team. Dr. Nowak saw her this morning and is working on a transfer to [facility]. Pt identifies her [facility] CM as Abbey Proctor. Spoke with Abbey who does confirm Elizabeth hours of 20 month. Indicates that pt does not readily accept care. She noted pt had called her this morning to tell her she was tranferring. Abbey will follow up. [facility]AA agrees to fax the d/c summary to Abbey when available. (tel: [phone]). Dr. Nowak has updated pt's son. 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 Nowak is currently working on a transfer to [facility]
[2017-09-30] MEDS: SODIUM CHLORIDE 0.9% 1,000 ML 150 ML IV (09:17)
[2017-09-30] MEDS: METOPROLOL TARTRATE 5 MG/5 ML INJ IV (09:17)
[2017-09-30] MEDS: WATER IV (09:22)
[2017-09-30] MEDS: CLINDAMYCIN IV (09:22)
[2017-09-30] MEDS: DEXTROSE 5% IV (09:22)
--- NOTE | 2017-09-30 09:28 | PC.NURSE ---
Addendum entered by Mrianda Walker R.N. 09/30/17 10:10: report to juice Alvarado RN at [facility]. Pt taken by helicopter to [facility], left [facility] around 0945. pt belongings left in room, gave to dry pan charger to call family. Original Note: day shift arrived on shift, assessed pt and noted what appeared to be bruising to labia and upper inner thighs with edema. also noted skin breakdown on pt's buttocks. barrier cream applied and pictures taken. Notified MD. examined pt with and Laureano FAITH. concerned for infectious process. Transfer to [facility]. per MD orders, NS @150 ml/hr started. 5 mg IV metoprolol given, pt on tele, no changes noted. BP monitored. started clindamycin per MD order. will call report.
--- NOTE | 2017-10-02 13:20 | PC.NURSE ---
Patients daughter in law Theresa Gasca came and picked up patients belongings. Took wallet, checkbook, life alert, keys and some clothing.
== END 2017-09-30 09:45 | disposition short-term general hospital (02) | DRG 557 ==
LOC: ED 20:08 → AC 20:16
PROVIDERS: Emergency Medicine; Admitting Provider Internal Medicine; Emergency Provider Emergency Medicine; Visit Provider Internal Medicine
DX: M72.6 Necrotizing fasciitis (principal); I21.A1 Myocardial infarction type 2; L03.116 Cellulitis of left lower limb; D61.818 Other pancytopenia; B49 Unspecified mycosis; N39.0 Urinary tract infection, site not specified; Z95.0 Presence of cardiac pacemaker; F32.9 Major depressive disorder, single episode, unspecified; E87.6 Hypokalemia
CPT/HCPCS: 36415; 36591; 71045; 80048; 80053; 81001; 83605; 83690; 83880; 84145; 84484; 85025; 85610; 85730; 87040; 87077; 87086; 87147; 87150; 87186; 87205; 93005; 93971; 99284; J1650; J2543; S0077